=== PATIENT | male | born 1995 | race Caucasian/White ===

== ENCOUNTER → 2018-03-06 | Outpatient (CLI) | payer OTHER | LOC: COL.RAD 07:57 | DX: M25.551 Pain in right hip (principal) ==

== ENCOUNTER → 2021-01-10 | Outpatient (CLI) | payer OTHER | LOC: COL.PUL 08:00 | DX: R06.02 Shortness of breath (principal) ==

== ENCOUNTER → 2021-03-16 | Outpatient (CLI) | payer OTHER | LOC: COL.PUL 02-23 13:00 | DX: R06.02 Shortness of breath (principal) | CPT/HCPCS: J7674 ==